=== PATIENT | male | born 1970 | race Caucasian/White ===

== ENCOUNTER 2016-11-24 08:45 | Observation (INO) | payer OTHER ==
[~2016-11-24] VITALS: Ht 188 cm; Wt 136.1 kg
[2016-11-24 09:27] LABS: HEMOGLOBIN 16.8 gm/dl (14.0-17.5); RED BLOOD COUNT 5.23 M/UL (4.20-5.50); WHITE BLOOD COUNT 9.5 K/UL (4.5-11.0)
[2016-11-24 09:42] LABS: BUN/CREATININE RATIO 16 (0-10)
[2016-11-24 15:38] LABS: BUN/CREATININE RATIO 16 (0-10)
[2016-11-24] MEDS ORDERED: ISOMETHEPT-CAF1 EACH PO (16:06)
[2016-11-24] MEDS ORDERED: BENICAR HCT 401 EAC1 PO (16:14)
[2016-11-24] MEDS ORDERED: CARTIA XT240 MG PO (16:16)
[2016-11-24] MEDS ORDERED: PROVIGIL100 MG PO (16:19)
[2016-11-24] MEDS ORDERED: GOODY'S EX-STR1 EAC1 PO (16:22)
[2016-11-24] MEDS ORDERED: TYLENOL 325MG325 MG PO (18:54)
[2016-11-24] MEDS ORDERED: HABITROL 21 MG P1 EA TD (19:09)
[2016-11-24] MEDS ORDERED: LIPITOR TAB 2020 MG PO (19:11)
[2016-11-24] MEDS ORDERED: LOPRESSOR 25 MG25 MG PO (19:13)
[2016-11-24] MEDS ORDERED: FISH OIL 1,0001 EAC5 PO (19:13)
== END 2016-11-24 19:45 | disposition home or self-care (01) ==
LOC: ER1 08:45 → ZEROF 10:45 → MED SURG 4 14:24
PROVIDERS: Emergency Medicine; ADMIT Internal Medicine Infectious Disease
DX: R07.9 Chest pain, unspecified (principal); I51.7 Cardiomegaly; R51 Headache; I10 Essential (primary) hypertension; R74.0 Nonspecific elevation of levels of transaminase and lactic acid dehydrogenase [LDH]; K76.0 Fatty (change of) liver, not elsewhere classified; E78.5 Hyperlipidemia, unspecified; E66.2 Morbid (severe) obesity with alveolar hypoventilation; F17.210 Nicotine dependence, cigarettes, uncomplicated; Z68.38 Body mass index [BMI] 38.0-38.9, adult; Z87.19 Personal history of other diseases of the digestive system; Z88.5 Allergy status to narcotic agent; Z82.49 Family history of ischemic heart disease and other diseases of the circulatory system
CPT/HCPCS: ECHO; 36415; 36600; 70450; 71010; 78452; 80048; 80053; 80061; 82550; 82553; 82803; 83874; 84484; 85025; 93005; 93017; 93306; 99285; A9502; G0378; J2785